=== PATIENT | female | born 1980 | race American Indian/Alaskan Native ===

== ENCOUNTER 2016-06-26 12:37 | Emergency (ER) | payer MEDICAID ==
[2016-06-26 13:33] LABS: Basophils % (Auto) 0.8 % (0.0-1.8); Eosinophils % (Auto) 2.3 % (0.0-4.3); Hematocrit 36.1 % (30.3-42.9); Hemoglobin 11.3 gm/dl (10.1-14.3); Mean Corpuscular HGB Conc 31 % (30-34); Mean Corpuscular Hemoglobin 24 pg (28-32); Mean Corpuscular Volume 76 fl (79-97); Platelet Count 220 K/mm3 (140-440); Red Blood Count 4.78 M/mm3 (3.65-5.03); Red Cell Distribution Width 17.8 % (13.2-15.2); White Blood Count 5.5 K/mm3 (4.5-11.0)
[2016-06-26 13:49] LABS: Anion Gap 16 mmol/L; BUN/Creatinine Ratio 13.33; Blood Urea Nitrogen 8 mg/dL (7-17); Calcium 8.9 mg/dL (8.4-10.2); Carbon Dioxide 24 mmol/L (22-30); Chloride 104.5 mmol/L (98-107); Glucose 86 mg/dL (65-100); Potassium 3.9 mmol/L (3.6-5.0); Sodium 141 mmol/L (137-145)
[2016-06-26] MEDS ORDERED: NORVASC PO ONE (16:30)
[2016-06-26] MEDS ORDERED: ZESTRIL PO ONE (16:32)
--- NOTE | 2016-06-26 16:44 | Emergency Department Report ---
HPI - General Chief Complaint: High BP Time Seen by Provider: 06/26/16 16:24 - HPI HPI: This is a 35-year-old Afro[place] female presents to the emergency Department with uncontrolled blood pressure. The patient says she is on amlodipine and lisinopril but is unsure of the exact dose of each medication. She has not taken the medication. Past 4 days because she has become very stressed. She complains of intermittent frontal headache that is currently 7 out of 10 intensity. She denies any vision change, slurred speech or any neurological deficits. Patient also says that she has had some in her chest pains but currently does not have any. She has only the medical history of hypertension. She denies tobacco abuse but does admit to multiple caffeinated products each day. Her primary care doctor is a Dr. London but she has not seen him regarding her symptoms. No recent travel or sick contacts at home. ED Past Medical Hx - Past Medical History Previous Medical History?: Yes Hx Hypertension: Yes - Surgical History Past Surgical History?: No - Social History Smoking Status: Never Smoker Substance Use Type: None ED Review of Systems ROS: Stated complaint: HIGH BP Other details as noted in HPI Comment: All other systems reviewed and negative Constitutional: denies: chills, fever Eyes: denies: eye pain, eye discharge, vision change ENT: denies: ear pain, throat pain Respiratory: denies: cough, shortness of breath, wheezing Cardiovascular: denies: palpitations, edema Gastrointestinal: denies: abdominal pain, nausea, diarrhea Genitourinary: denies: urgency, dysuria, discharge Musculoskeletal: denies: back pain, joint swelling, arthralgia Skin: denies: rash, lesions Neurological: headache. denies: weakness, numbness Physical Exam - Physical Exam Vital Signs: Vital Signs 06/26/16 06/26/16 13:06 16:39 Temperature 98.6 F Pulse Rate 79 72 Respiratory 16 16 Rate Blood Pressure 189/124 Blood Pressure 171/117 [Left] O2 Sat by Pulse 100 99 Oximetry Physical Exam: GENERAL: The patient is well-developed well-nourished. HEENT: Normocephalic. Atraumatic. Extraocular motions are intact. Patient has moist mucous membranes. Pupils equal reactive to light bilaterally. No nystagmus. NECK: Supple. Trachea is midline. CHEST/LUNGS: Clear to auscultation. There is no respiratory distress noted. HEART/CARDIOVASCULAR: Regular. There is no tachycardia. There is no gallop rub or murmur. ABDOMEN: Abdomen is soft, nontender. Patient has normal bowel sounds. There is no abdominal distention. SKIN: There is no rash. There is no edema. There is no diaphoresis. NEURO: The patient is awake, alert, and oriented. The patient is cooperative. The patient has no focal neurologic deficits. The patient has normal speech and gait. Cranial nerves II through XII grossly intact. No pronator drift. No dysmetria. MUSCULOSKELETAL: There is no tenderness or deformity. There is no limitation range of motion. There is no evidence of acute injury. Muscle strength 5 over 5 upper and lower extremity bilaterally. Cap refill less than 2 seconds. ED Course Vital Signs 06/26/16 06/26/16 13:06 16:39 Temperature 98.6 F Pulse Rate 79 72 Respiratory 16 16 Rate Blood Pressure 189/124 Blood Pressure 171/117 [Left] O2 Sat by Pulse 100 99 Oximetry ED Medical Decision Making - Lab Data Result diagrams: 06/26/16 13:16 06/26/16 13:16 - EKG Data -: EKG Interpreted by Mo EKG shows normal: sinus rhythm, axis, intervals, QRS complexes, ST-T waves Rate: normal - EKG Data When compared to previous EKG there are: previous EKG unavailable Interpretation: normal EKG - Medical Decision Making This is a 35-year-old female presents to the emergency department with complaint of uncontrolled blood pressure but also noncompliant with her blood pressure medication. She admits to a heavy caffeine intake as well as process foods with high salt content. Patient has not taken her blood pressure medications the past 4 days. Her labs are unremarkable and do not show any signs of renal insufficiency, infection or any sequela of hypertension. EKG does not show any signs of ST elevation [place], ischemia or dysrhythmia. Patient was given some oral medication which did not appear to help with her blood pressure. She got some IV hydralazine and eventually blood pressure came down to more reasonable level. I spoke with the patient in great detail about her caffeine and salt intake, starting some exercise and restarting her medications. She has been encouraged to follow up with her primary care doctor in the next few days. She will return to the ER with any worsening of her symptoms or any acute distress. She had complained of some intermittent chest pains over the past few days but has none since she arrived in the emergency department. She had a headache when she first came in to the emergency department and that has also resolved and the patient is a symptomatically. She has no focal, motor or sensory deficits and cranial nerves are intact. - Differential Diagnosis hypertensive urgency, noncompliance, migraine, tension headache Critical Care Time: No Critical care attestation.: If time is entered above; I have spent that time in minutes in the direct care of this critically ill patient, excluding procedure time. ED Disposition Clinical Impression: Noncompliance with medication regimen Headache Qualifiers: Headache type: unspecified Headache chronicity pattern: unspecified pattern Intractability: not intractable Qualified Code(s): R51 - Headache Hypertension Qualifiers: Hypertension type: essential hypertension Qualified Code(s): I10 - Essential ( primary) hypertension Disposition: DISCHARGED TO HOME OR SELFCARE Is pt being admited?: No Condition: Stable Instructions: Acute Headache (ED), Hypertension (ED) Additional Instructions: Please follow-up with your primary care doctor in the next few days. Try to stay away from foods that are high in salt and caffeinated products to assist with her blood pressure. Keep a blood pressure log. Restart your blood pressure medications. Return to the emergency department with any acute distress. Referrals: [facility] [Primary Care Provider] - 3-5 Days Time of Disposition: 20:05
[2016-06-26] MEDS ORDERED: APRESOLINE IV ONE ×2 (18:09→18:10)
--- NOTE | 2016-06-26 19:16 | Admit Criteria Form ---
Admission Criteria Documentation: HYPERTENSION Clinical Indications for Admission to Inpatient Care ( Place "X" for any and all applicable criteria): Admission is indicated for ANY ONE of the following(1)(2)(3)(4): [ ]I. Hypertensive emergency, with evidence of acute and progressing target organ disease as indicated by ANY ONE of the following: [ ]a) Hypertensive encephalopathy (eg, confusion, altered mental status) [ ]b) Cerebral infarction [ ]c) Intracranial hemorrhage [ ]d) Myocardial ischemia or infarction [ ]e) Pulmonary edema [ ]f) Aortic dissection [ ]g) Seizure [ ]h) Acute renal insufficiency [ ]i) Papilledema [ ]j) Microangiopathic hemolytic anemia [ ]II. Adrenergic crisis (eg, severe hypertension due to pheochromocytoma crisis, cocaine or amphetamine intoxication, or clonidine withdrawal) [X ]III. Severe hypertension (SBP greater than 180 mmHg or DBP greater than 110 mmHg or greater than the 95th percentile for age, gender, and height in pediatric patients) that cannot be controlled (eg, to SBP less than 160 mmHg and DBP less than 100 mmHg in adults) by treatment with oral medication in emergency department or observation care Extended stay beyond goal length of stay may be needed for(11)(12)(13): [ ]a) Persistent hypertensive encephalopathy [ ]b) Continuation of pulmonary edema [ ]c) Recurring or persistent severe hypertension [ ]d) Target organ damage (eg, angina, stroke, aortic dissection) [ ]e) Associated renal insufficiency The original [employer] content created by [employer] has been revised. The portions of the content which have been revised are identified through the use of italic text or in bold, and [facility] has neither reviewed nor approved the modified material. All other unmodified content is copyright [employer]. Please see references footnoted in the original [employer] edition 2016
[2016-06-26] MEDS ORDERED: ZOFRAN ONE (19:36)
[2016-06-26] MEDS ORDERED: ZOFRAN IV ONE (19:45)
[2016-06-26 20:07] VITALS: BP 145/96
== END 2016-06-26 20:08 | disposition home or self-care (01) ==
LOC: ED 12:37
DX: I10 Essential (primary) hypertension (principal); R51 Headache; Z91.14 Patient's other noncompliance with medication regimen
CPT/HCPCS: 36415; 80048; 84484; 84703; 85025; 93005; 93010; 96374; 96375; 96376; 99284; J0360; J2405